=== PATIENT | male | born 1960 | race Caucasian/White ===

== ENCOUNTER → 2017-09-12 | Outpatient (CLI) | payer OTHER | LOC: CAT 08:10 | DX: Z13.6 Encounter for screening for cardiovascular disorders (principal) ==

== ENCOUNTER → 2019-10-29 | Outpatient (CLI) | payer OTHER ==
[~2019-10-29] MED LIST: ALLOPURINOL 10100 M1 PO; ASPIRIN325 PO; BENICAR40 MG PO; BYSTOLIC10 MG PO; COZAAR 50 MG TA50 M2 PO; CRESTOR20 MG PO; EFFIENT10 MG PO; LIVALO4 MG PO; PREDNISONE 5 MG5 M1 PO; PROTONIX40 M2 PO
== END ==
LOC: SJCVCIMAG 07:20
PROVIDERS: ATTEND Internal Medicine Cardiovascular Disease
DX: R07.89 Other chest pain (principal); R06.00 Dyspnea, unspecified; I25.10 Atherosclerotic heart disease of native coronary artery without angina pectoris; I10 Essential (primary) hypertension; E78.5 Hyperlipidemia, unspecified; I25.2 Old myocardial infarction; Z98.61 Coronary angioplasty status

== ENCOUNTER 2019-10-30 06:47 | Observation (INO) | payer OTHER ==
[2019-10-30] VITALS (10 sets, daily range): BP systolic 114–144; BP diastolic 62–87
[~2019-10-30] VITALS: Ht 172.7 cm; Wt 89.4 kg
[~2019-10-30 06:47] MED LIST changes: -BENICAR40 MG PO; -BYSTOLIC10 MG PO; -CRESTOR20 MG PO
[2019-10-30 09:46] LABS: HEMATOCRIT 44.8 % (42.0-52.0); HEMOGLOBIN 15.5 gm/dL (14.0-18.0); MCH 31.4 pg (26.0-34.0); MCHC 34.7 g/dL (28.0-37.0); MCV 90.5 fL (80.0-100.0); RBC 4.96 mil/uL (4.50-6.00); RDW 13.7 % (10.5-14.5); WBC 4.9 thou/uL (4.0-11.0)
[2019-10-30 09:52] LABS: CALCIUM 9.3 mg/dL (8.5-10.1); CREATININE 1.3 mg/dL (0.7-1.3)
[2019-10-30] MEDS ORDERED: CRESTOR20 MG PO ×2 (09:54)
[2019-10-30] MEDS ORDERED: BYSTOLIC10 MG PO ×2 (09:54)
[2019-10-30 09:58] LABS: POTASSIUM 5.1 mmol/L (3.5-5.1)
--- NOTE | 2019-10-30 18:54 | NUR ---
PATIENT ARRIVED FROM CATHLAB, A&O X4. RT GRION SITE D/C/I, AND VSS. OFF BED REST, AND VOIDED X1. SR/1AVB/BBB ON THE MONITOR AND DENIES ANY CP. WILL CONTINUE WITH POC.
[2019-10-31 00:15] VITALS: BP 145/91
[2019-10-31 04:04] VITALS: BP 158/100
[2019-10-31 05:31] LABS: HEMATOCRIT 40.1 % (42.0-52.0); HEMOGLOBIN 13.9 gm/dL (14.0-18.0); MCH 31.1 pg (26.0-34.0); MCHC 34.7 g/dL (28.0-37.0); MCV 89.7 fL (80.0-100.0); RBC 4.46 mil/uL (4.50-6.00); RDW 13.8 % (10.5-14.5); WBC 5.6 thou/uL (4.0-11.0)
[2019-10-31 05:44] LABS: ALBUMIN 3.7 g/dL (3.4-5.0); CALCIUM 8.8 mg/dL (8.5-10.1); CREATININE 1.3 mg/dL (0.7-1.3); POTASSIUM 4.2 mmol/L (3.5-5.1); TOTAL BILIRUBIN 0.8 mg/dL (0.2-1.0); TOTAL PROTEIN 6.3 g/dL (6.4-8.2); TROPONIN-I 0.15 ng/mL (<0.06)
[2019-10-31] MEDS ORDERED: BENICAR40 MG PO ×2 (07:33)
[2019-10-31] MEDS ORDERED: EFFIENT10 MG PO ×2 (07:33)
--- NOTE | 2019-10-31 07:50 | NUR ---
Pt alert and oriented x 4. S/P heart cath yesterday. Right groin C/d/i. Denies chest pain, nausea or vomiting. Ad Madelin in his room. C/o headache x1, hydrocodone given x1. Denies any other concerns. Anticipate to DC this AM. Will continue with poc.
[2019-10-31 08:47] VITALS: BP 139/85
--- NOTE | 2019-10-31 09:04 | EKG ---
[facility] [place] [address] ELECTROCARDIOGRAM REPORT Name: TOSHIA XIONG Room #: 210-[facility] M.R.#: [id number] Admission: 10/30/19 Attend Phys: Albino New MD, Discharge: Date of : 56 Report #: [id number] THIS REPORT FOR: cc: Cameron Falcon MD, Neal A. MD Lundgren,Viktor Ayon MD [facility] ~ THIS REPORT FOR: //name// [facility] Test Date: 2019-10-30 Test Time: 09:43:07 Pat Name: TOSHIA XIONG Department: Room: 210 Gender: M Laboratory Secretary: ROSITA : 1960 Requested By: Albino New Order Number: [id number] MD: Viktor Card Measurements Intervals [place] Rate: 51 P: 37 CO: 216 QRS: -39 QRSD: 121 T: 29 QT: 449 QTc: 414 Interpretive Statements Sinus bradycardia Prolonged CO interval Nonspecific IVCD with LAD Compared to ECG 11/15/2017 06:10:37 No significant change was found Electronically Signed On 10-31-2019 9:04:29 CDT by Viktor Card [email or web address] <ELECTRONICALLY SIGNED> By: Viktor Card MD, [facility] 10/31/1904 Viktor Card MD, FAC /EPI
--- NOTE | 2019-10-31 09:19 | EKG ---
[facility] [place] [address] ELECTROCARDIOGRAM REPORT Name: TOSHIA XIONG Room #: 210-P ADM [facility] M.R.#: [id number] Admission: 10/30/19 Attend Phys: Albino New MD, Discharge: Date of : 56 Report #: [id number] THIS REPORT FOR: cc: Cameron Falcon MD, Neal A. MD Lundgren,Viktor Ayon MD [facility] ~ THIS REPORT FOR: //name// [facility] Test Date: 2019-10-31 Test Time: 07:28:21 Pat Name: TOSHIA XIONG Department: Room: 210 P Gender: M Kettle Firer: ROSITA : 1960 Requested By: Albino New Order Number: [id number] MD: Viktor Card Measurements Intervals [place] Rate: 56 P: 41 SC: 209 QRS: -39 QRSD: 122 T: 54 QT: 437 QTc: 422 Interpretive Statements Sinus rhythm Borderline prolonged SC interval Nonspecific IVCD with LAD Compared to ECG 10/30/2019 09:43:07 No significant change was found Electronically Signed On 10-31-2019 9:19:00 CDT by Viktor Card [email or web address] <ELECTRONICALLY SIGNED> By: Viktor Card MD, [facility] 10/31/19918 7 7 Viktor Card MD, [facility] /EPI
[2019-10-31 09:20] VITALS: BP 139/85
--- NOTE | 2019-10-31 10:23 | NUR ---
[facility] PT A&O X4. ASSESSMENT CHARTED. FALL PRECAUTIONS IN PLACE. PT DENIES HAVING CHEST PAIN. PT DENIES HAVING SOB. PT DENIES HAVING ACUTE PAIN. PT DISCHARGING HOME C SELF CARE. PT AND PT'S SPOUSE RECEIVED DISCHARGE EDUCATION. PT AND PT'S SPOUSE STATED UNDERSTANDING AND DENIED HAVING FURTHER QUESTIONS. IV DC. TELE DC. PT COMFORTABLE. PT DENIES HAVING FURTHER CONCERNS. R GROIN C/D/I. NO HEMATOMA. PT AMBULATES STEADY/INDEPENDENT. AWAITING DR. ADKINS TO ROUND PRIOR TO PT LEAVING UNIT.
--- NOTE | 2019-10-31 15:17 | CATHLAB ---
[facility] [place] [address] INVASIVE PROCEDURE REPORT Name: TOSHIA XIONG Room #: 210-[facility] Dominick De León#: [id number] Admission: 10/30/19 Attend Phys: Albino New MD, Discharge: 10/31/19 Date of : 56 Report #: [id number] THIS REPORT FOR: cc: Cameron Falcon MD, Neal A. MD Mancuso, Gerald M. MD [facility] ~ APPROVED REPORT Study performed: 10/30/2019 10:15:11 Patient Details The patient is a 58 year-old male Event Personnel Albino New Machine Setter And Repairer, Edilma Kent RT(R)() Monitor, Sim Jauregui RTR Sathish Ghosh Dexter RN RN, Liliya Bolivar RN RN, Cierra Howard RN RN, Pietro Kraus RTR Monitor Procedures Performed Art Access - R femoral artery* DEJUAN Place w/wo Plasty Single LAD 400417 Left Heart Cath w/or w/o Coronaries [id number] [facility] 13911 Initial Mod Sed Same Phys/QHP Gr5y 495912 70493 Mod Sed Same Phys/QHP Ea 896450 Indication Chest pain Procedure Narrative The Right Groin^ was infiltrated with 1% Lidocaine subcutaneous anesthesia. A PINNACLE 6FR Sheath #[id number] sheath was inserted into the RFA^. Coronary angiography was performed using coronary diagnostic catheters. The right coronary system was accessed and visualized with a JR4 catheter. The left coronary system was accessed and visualized with a JL4 catheter. The left ventricle was accessed and visualized with a PIGTAIL catheter. Left ventriculogram was performed in 30 degree projection. Closure device was deployed with a 6 Fr MYNX CONTROL 6F/7F L#[id number]. The patient tolerated the procedure well and there were no complications associated with the procedure. There was no hematoma. Intraoperative Conscious Sedation Sedation start time: 1200 Case end Time: 1259 [facility] [address] [place] [address] INVASIVE PROCEDURE REPORT Name: TOSHIA XIONG Room #: 210-P [facility]#: [id number] Admission: 10/30/19 Attend Phys: Albino New, Discharge: 10/31/19 Date of : 56 Report #: [id number] Fentanyl 200 mcg Versed 3 mg Fluoro Time: 3.59 minutes Dose: DAP 5921.40 cGycm2 788 mGy Contrast Type and Amount: Visipaque 145 ml Hemodynamics The aortic pressure is 150/95 mmHg with a mean of 117 mmHg. The left ventricular pressure is 147/7 mmHg with a mean of mmHg. The left ventricular end diastolic pressure is 23 mmHg. PCI Technique Lesion Percutaneous coronary intervention was performed on the mid left anterior descending artery segment. A LAUNCHER 6FR EBU 3.5 #[id number] Guide Catheter was used to engage the ostium. A Luge Wire .014 x 182CM #[id number] Interventional Guidewire was used to cross the lesion. STENT DEPLOYMENT A drug-eluting stent RESOLUTE CARMELO OTW 2.75 X 8 #[id number] was inserted and inflated up to 14.00atm for 20seconds. Additional Inflation: 18.00atm for 22seconds. POST STENT DEPLOYMENT BALLOON DILATION A Balloon catheter TREK NC OTW 3.0 X 12 #[id number] was inserted and inflated up to 20.00atm for 30seconds. Conclusion #1. Successful PTCA stent of a proximal 80% LAD lesion placement of a 2.75 x 8 resolute Carmelo postdilated with a 3.0 x 12 noncompliant balloon. Up to 3.1 mm this telescoped into a prior stent. ROSA MARIA grade III flow into the LAD around the apex. #2 left main mildly disease giving rise to LAD and circumflex #3 large dominant circumflex system with mild disease #4 nondominant right coronary artery widely patent #5 normal left jugular size and systolic function EF 60% Recommendations and plan: Continue aggressive risk factor modification. Dual antiplatelet therapy has been initiated. Patient transferred to CCU to follow post coronary stent protocol. Pain-free hemodynamically stable. <ELECTRONICALLY SIGNED> By: Albino New MD, [facility] 10/31/19 1517 [id number] 151 Albino New MD, FACC /INF
== END 2019-10-31 10:46 | disposition home or self-care (01) ==
LOC: CATH 06:47 → 2N 13:51
PROVIDERS: ADMIT Internal Medicine Cardiovascular Disease; ATTEND Internal Medicine Cardiovascular Disease
DX: I25.10 Atherosclerotic heart disease of native coronary artery without angina pectoris (principal); I10 Essential (primary) hypertension; E78.5 Hyperlipidemia, unspecified; E78.00 Pure hypercholesterolemia, unspecified

== ENCOUNTER → 2020-02-11 | Outpatient (CLI) | payer OTHER ==
[~2020-02-11] MED LIST changes: +BENICAR40 MG PO; +BYSTOLIC10 MG PO; +CRESTOR20 MG PO
== END ==
LOC: SJCVCIMAG 07:10
PROVIDERS: ATTEND Internal Medicine Cardiovascular Disease
DX: I65.23 Occlusion and stenosis of bilateral carotid arteries (principal); E78.5 Hyperlipidemia, unspecified

== ENCOUNTER 2020-11-14 01:51 | Inpatient (IN) | payer OTHER ==
[~2020-11-14] VITALS: Ht 172.7 cm; Wt 93.9 kg
[2020-11-14 01:52] VITALS: BP 169/90
[2020-11-14 02:15] LABS: ABSOLUTE NEUTROPHILS 3.7 thou/uL (1.4-8.2); BASOPHILS 1.3 % (0.0-2.0); EOSINOPHILS 1.8 % (0.0-3.0); HEMATOCRIT 44.6 % (42.0-52.0); HEMOGLOBIN 15.3 gm/dL (14.0-18.0); LYMPHOCYTES 35.8 % (24.0-44.0); MCH 31.7 pg (26.0-34.0); MCHC 34.3 g/dL (28.0-37.0); MCV 92.6 fL (80.0-100.0); MONOCYTES 7.3 % (1.0-8.0); PLATELET COUNT 185 thou/uL (150-400); POLYS 53.8 % (36.0-66.0); RBC 4.82 mil/uL (4.50-6.00); RDW 13.1 % (10.5-14.5); WBC 6.8 thou/uL (4.0-11.0)
[2020-11-14] MEDS ORDERED: ASA81BEC PO (02:18)
[2020-11-14 02:24] LABS: CALCIUM 8.6 mg/dL (8.5-10.1); CREATININE 1.3 mg/dL (0.7-1.3); POTASSIUM 4.4 mmol/L (3.5-5.1)
[2020-11-14] MEDS ORDERED: CIALIS5 MG PO (02:26)
[2020-11-14 02:34] LABS: ALBUMIN 3.9 g/dL (3.4-5.0); TOTAL BILIRUBIN 0.4 mg/dL (0.2-1.0); TOTAL PROTEIN 6.8 g/dL (6.4-8.2)
[2020-11-14 06:40] VITALS: BP 157/91
[2020-11-14 07:07] LABS: CHOLESTEROL 135 mg/dL (<200); HDL CHOLESTEROL 36 mg/dL (>40); TC:HDL 3.8 Ratio (Not establshd); TRIGLYCERIDE 585 mg/dL (<150); VLDL 117 mg/dL (<40)
[2020-11-14 08:07] VITALS: BP 136/90
[2020-11-14 11:01] VITALS: BP 136/90
--- NOTE | 2020-11-14 11:10 | NUR ---
PATIENT ADMIITED TO ROOM FROM ER AT THIS TIME. HE IS ALERT ORIENTED X4. PLEASANT WITH CARE. RESPIRATIONS ARE NBON LABORED. CARDIOLOGY ASSESSED PATIENT AND DETERMINED THAT HE COULD BE DISCHARGED HOME. HE IS BEING DISCHARGED AT THIS TIME. DOES NOT SEEM TO BE IN PAIN OR DISTRESS.
[2020-11-15 04:05] LABS: GLYCOHEMOGLOBIN (HGB A1C) 5.6 % (4.8-5.6)
--- NOTE | 2020-11-15 07:28 | EKG ---
[address] [place] [address] ELECTROCARDIOGRAM REPORT Name: TOSHIA XIONG Room #: 208-P [facility] IN ..#: [id number] Admission: 11/14/20 Attend Phys: Zeeshan Nails MD Discharge: 11/14/20 Date of : 56 Report #: [id number] [facility] ED Test Date: 2020-11-14 Test Time: 01:56:11 Pat Name: TOSHIA XIONG Department: Room: 208 Gender: M Display Manager: : 1960 Requested By: Hiram Irizarry Order Number: [id number] MD: Wayne Leonard Measurements Intervals [place] Rate: 64 P: 15 [place]: 205 QRS: -43 QRSD: 116 T: 83 QT: 418 QTc: 432 Interpretive Statements Sinus rhythm LVH with IVCD, LAD and secondary repol abnrm Compared to ECG 10/31/2019 07:28:21 Left ventricular hypertrophy now present Early repolarization now present Electronically Signed On 11-15-2020 7:28:39 CDT by Wayne Leonard [email or web address] <ELECTRONICALLY SIGNED> By: Wayne Leonard MD, [facility] 11/15/20 0728 [id number] [id number] Wayne Leonard MD, [facility] /EPI
== END 2020-11-14 11:25 | disposition home or self-care (01) | DRG 303 ==
LOC: ER 01:51 → 2N 06:01 → EROBS 06:01 → 2N 07:19
PROVIDERS: Emergency Medicine; Nurse Practitioner Family; ADMIT Hospitalist; ATTEND Hospitalist
DX: I25.10 Atherosclerotic heart disease of native coronary artery without angina pectoris (principal); I10 Essential (primary) hypertension; I77.9 Disorder of arteries and arterioles, unspecified; E78.5 Hyperlipidemia, unspecified; Z20.822 Contact with and (suspected) exposure to COVID-19; Z95.5 Presence of coronary angioplasty implant and graft; Z79.899 Other long term (current) drug therapy; Z79.82 Long term (current) use of aspirin; Z88.8 Allergy status to other drugs, medicaments and biological substances; I25.2 Old myocardial infarction; Z72.89 Other problems related to lifestyle; Z83.3 Family history of diabetes mellitus; Z82.49 Family history of ischemic heart disease and other diseases of the circulatory system
CPT/HCPCS: 10081